=== PATIENT | male | born 1960 | race Caucasian/White ===

== ENCOUNTER 2016-11-11 08:16 | Observation (INO) | payer OTHER ==
[~2016-11-11] VITALS: Ht 182.9 cm; Wt 95.0 kg
[~2016-11-11 08:16] MED LIST: LISI-363 PO; LORTA10 PO; METF-324 PO; NEXI20CA PO; PRAV20 PO; XANA1TAB6 PO
[2016-11-11 08:19] VITALS: BP 139/80; PULSE 88; RESP 17; RESP 20; TEMP 100.1; O2SAT 98
[2016-11-11 08:38] VITALS: BP 137/72; PULSE 93; RESP 17; TEMP 98.3; O2SAT 99
[2016-11-11] MEDS ORDERED: HYDR-3535 PO (08:44)
[2016-11-11] MEDS ORDERED: LISI-515 PO (08:44)
[2016-11-11] MEDS ORDERED: PRAV40TA2 PO (08:44)
[2016-11-11] MEDS ORDERED: XANA1TAB2 PO (08:44)
[2016-11-11] MEDS ORDERED: METF1000 PO (08:44)
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
[2016-11-11] MEDS ORDERED: SODIUM CHLOR 0.9% 1000 ML INJ 1,000 ML IV SCH (09:08)
[2016-11-11] MEDS ORDERED: MORPHINE SULFATE 8 MG/ML INJ IV PUSH ONE (09:15)
[2016-11-11] MEDS ORDERED: SODIUM CHLORIDE 0.9% FLUSH 10 ML FLUSH IV FLUSH PRN ×2 (09:15→13:45)
[2016-11-11] MEDS ORDERED: ONDANSETRON HCL 4 MG/2 ML VIAL IVP ONE (09:15)
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
[2016-11-11 10:49] LABS: AUTOMATED NEUTROPHIL # 13.5 TH/MM3 (1.8-7.7); BASOPHIL % 0.2 % (0.0-2.0); HEMO FLAGS DIFF FINAL; LYMPH % 2.8 % (9.0-44.0); LYMPHOCYTE # 0.4 TH/MM3 (1.0-4.8); MEAN CELL VOLUME 90.5 FL (80.0-100.0); MEAN CORPUSCULAR HEMOGLOBIN 30.3 PG (27.0-34.0); MEAN CORPUSCULAR HGB CONC 33.5 % (32.0-36.0); PLATELET COUNT 167 TH/MM3 (150-450); RED BLOOD COUNT 4.41 MIL/MM3 (4.50-5.90); RED CELL DISTRIBUTION WIDTH 13.8 % (11.6-17.2); WHITE BLOOD COUNT 14.7 TH/MM3 (4.0-11.0)
[2016-11-11 11:02] LABS: ALT (GPT) 33 U/L (12-78); ANION GAP 8 MEQ/L (5-15); AST (GOT) 37 U/L (15-37); BICARBONATE 27.2 MEQ/L (21.0-32.0); BLOOD UREA NITROGEN 17 MG/DL (7-18); CHLORIDE 101 MEQ/L (98-107); GLOMERULAR FILTRATION RATE 64 ML/MIN (>89); POTASSIUM 3.6 MEQ/L (3.5-5.1); SODIUM (NA) 136 MEQ/L (136-145)
[2016-11-11 11:09] LABS: ALKALINE PHOSPHATASE 59 U/L (45-117); TOTAL BILIRUBIN ADULT 0.7 MG/DL (0.2-1.0)
[2016-11-11 11:30] LABS: BLOOD, URINE NEG (NEG); GLUCOSE,URINE NEG (NEG); KETONE, URINE NEG (NEG); NITRITE,URINE NEG (NEG); PH, URINE 6.5 (5.0-8.5); URINE COLOR YELLOW (YELLW/STRAW)
[2016-11-11 11:31] LABS: COMMENT (UR) CULT NOT INDICATED; CULTURE IF INDICATED CULT NOT INDICATED
[2016-11-11] MEDS ORDERED: ZOFR4TAB PO (11:41)
[2016-11-11] MEDS ORDERED: PERC10TA27 PO (11:41)
[2016-11-11] MEDS ORDERED: DEXTROSE 50% IN WATER 50 ML SYRINGE ONE (12:54)
[2016-11-11] MEDS ORDERED: DEXTROSE 50% IN WATER 50 ML SYRINGE IV PUSH ONE (13:00)
[2016-11-11 13:41] VITALS: BP 139/80; PULSE 98; RESP 18; O2SAT 99
[2016-11-11] MEDS ORDERED: RESP: ALBUTEROL 2.5 MG/IPRATROPIUM 0.5 MG NEB (PRN) NEB (13:45)
[2016-11-11] MEDS ORDERED: GLUCAGON 1 MG/ML VIAL OTHER PRN (13:45)
[2016-11-11] MEDS ORDERED: DEXTROSE 50% IN WATER 50 ML VIAL(D50) IV PUSH PRN (13:45)
[2016-11-11] MEDS ORDERED: ACETAMINOPHEN 325 MG TAB PO PRN ×2 (13:45)
[2016-11-11] MEDS ORDERED: ONDANSETRON HCL 4 MG/2 ML VIAL IVP PRN (13:45)
[2016-11-11] MEDS ORDERED: ENALAPRILAT 2.5 MG/2 ML VIAL IV PUSH PRN (13:45)
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
[2016-11-11] MEDS ORDERED: ALPRAZolam 1 MG TAB PO PRN (14:00)
[2016-11-11] MEDS: SODIUM CHLOR 0.9% 1000 ML INJ 1,000 ML IV SCH (14:45)
[2016-11-11] MEDS: ACETAMINOPHEN/HYDROcodone 325 MG/5 MG TAB PO PRN (14:48)
[2016-11-11] MEDS: INSULIN ASPART SUPPLEMENTAL SCALE SQ SCH ×2 (17:00→21:00)
[2016-11-11 17:23] VITALS: BP 121/73; PULSE 96; RESP 20; TEMP 100.8; O2SAT 98
[2016-11-11] MEDS: IBUPROFEN 400 MG TAB PO SCH (18:17)
[2016-11-11] MEDS: ACETAMINOPHEN/HYDROcodone 325 MG/7.5 MG TAB PO PRN (18:52)
[2016-11-11 20:19] VITALS: BP 120/72; PULSE 85; RESP 16; TEMP 98; O2SAT 97
[2016-11-11] MEDS: SODIUM CHLORIDE 0.9% FLUSH 10 ML FLUSH IV FLUSH SCH (21:00)
[2016-11-11] MEDS ORDERED: TEMAZEPAM 15 MG CAP PO PRN (21:00)
[2016-11-12] MEDS: IBUPROFEN 400 MG TAB PO SCH ×3 (00:09→12:00)
[2016-11-12 00:52] VITALS: BP 96/55; PULSE 78; RESP 18; TEMP 98.4; O2SAT 96
[2016-11-12] MEDS: ACETAMINOPHEN/HYDROcodone 325 MG/5 MG TAB PO PRN (03:44)
[2016-11-12 04:18] VITALS: BP 104/51; PULSE 84; RESP 18; O2SAT 97
[2016-11-12] MEDS: SODIUM CHLOR 0.9% 1000 ML INJ 1,000 ML IV SCH (05:50)
[2016-11-12 07:48] LABS: AUTOMATED NEUTROPHIL # 8.2 TH/MM3 (1.8-7.7); BASOPHIL % 0.1 % (0.0-2.0); EOSINOPHIL % 0.3 % (0.0-4.0); HEMO FLAGS DIFF FINAL; LYMPHOCYTE # 0.6 TH/MM3 (1.0-4.8); MEAN CELL VOLUME 89.8 FL (80.0-100.0); MEAN CORPUSCULAR HEMOGLOBIN 30.7 PG (27.0-34.0); MEAN CORPUSCULAR HGB CONC 34.2 % (32.0-36.0); MONO % 7.8 % (0.0-8.0); NEUT % 85.8 % (16.0-70.0); PLATELET COUNT 131 TH/MM3 (150-450); RED BLOOD COUNT 4.01 MIL/MM3 (4.50-5.90); RED CELL DISTRIBUTION WIDTH 14.1 % (11.6-17.2); WHITE BLOOD COUNT 9.5 TH/MM3 (4.0-11.0)
[2016-11-12 08:00] VITALS: BP 118/76; PULSE 83; RESP 18; TEMP 98.2; O2SAT 96
[2016-11-12] MEDS: INSULIN ASPART SUPPLEMENTAL SCALE SQ SCH ×2 (08:00→12:00)
[2016-11-12 08:52] LABS: ALKALINE PHOSPHATASE 59 U/L (45-117); ALT (GPT) 41 U/L (12-78); ANION GAP 6 MEQ/L (5-15); AST (GOT) 30 U/L (15-37); BICARBONATE 28.3 MEQ/L (21.0-32.0); BLOOD UREA NITROGEN 16 MG/DL (7-18); CHLORIDE 104 MEQ/L (98-107); GLOMERULAR FILTRATION RATE 83 ML/MIN (>89); POTASSIUM 3.6 MEQ/L (3.5-5.1); SODIUM (NA) 138 MEQ/L (136-145); TOTAL BILIRUBIN ADULT 0.5 MG/DL (0.2-1.0)
[2016-11-12] MEDS ORDERED: PRAVASTATIN SOD 40 MG TAB PO SCH (09:00)
[2016-11-12] MEDS ORDERED: LISINOPRIL 20 MG TAB PO SCH (09:00)
[2016-11-12] MEDS ORDERED: PANTOPRAZOLE SODIUM 40 MG VIAL IV PUSH SCH (09:00)
[2016-11-12] MEDS: SODIUM CHLORIDE 0.9% FLUSH 10 ML FLUSH IV FLUSH SCH (10:08)
[2016-11-12] MEDS: ACETAMINOPHEN/HYDROcodone 325 MG/7.5 MG TAB PO PRN (10:08)
[2016-11-12 12:00] VITALS: BP 131/80; PULSE 94; RESP 20; TEMP 98.2; O2SAT 95
--- NOTE | 2016-11-12 12:10 | HHI.PR ---
Subjective Remarks Follow-up gastroenteritis/hypoglycemia 11/12/16-patient seen and examined, reports significant improvement of emesis. Able to tolerate by mouth without any complication nausea and vomiting today. Blood glucose within normal limit. Patient complains of left knee pain, however able to ambulate. Objective Vitals Vital Signs Date Time Temp Pulse Resp B/P (MAP) Pulse Ox O2 Delivery O2 Flow Rate FiO2 11/12/16 08:00 98.2 83 18 118/76 (90) 96 11/12/16 04:44 12 11/12/16 04:18 84 18 104/51 (68) 97 11/12/16 00:52 98.4 78 18 96/55 (69) 96 11/11/16 20:19 98.0 85 16 120/72 (88) 97 11/11/16 19:52 12 11/11/16 17:23 100.8 96 20 121/73 (89) 98 11/11/16 13:41 98 18 139/80 (99) 99 Room Air I/O 11/11/16 11/11/16 11/11/16 11/12/16 11/12/16 11/12/16 07:00 15:00 23:00 07:00 15:00 23:00 Intake Total 1240 ml 480 ml Output Total 200 ml Balance 1040 ml 480 ml Intake Oral 240 ml 480 ml IV Total 1000 ml Output Urine Total 200 ml # Voids 1 6 Result Diagram: 11/12/16 0550 11/12/16 0550 Imaging Last Impressions Knee X-Ray 11/11/16 0000 Signed Impressions: Service Date/Time: Friday, November 11, 2016 09:54 - CONCLUSION: 1. The orthopedic hardware appears intact. 2. Extensive soft tissue swelling with a large joint effusion. Jose Alfredo Stallworth MD Objective Remarks GENERAL: NAD SKIN: Warm and dry. HEAD: Normocephalic. EYES: No scleral icterus. No injection or drainage. NECK: Supple, trachea midline. No JVD or lymphadenopathy. CARDIOVASCULAR: Regular rate and rhythm without murmurs, gallops, or rubs. RESPIRATORY: Breath sounds equal bilaterally. No accessory muscle use. GASTROINTESTINAL: Abdomen soft, non-tender, nondistended. MUSCULOSKELETAL: No cyanosis, or edema. Minimal swelling left knee BACK: Nontender without obvious deformity. No CVA tenderness. A/P Problem List: (1) Gastroenteritis ICD Code: K52.9 - Noninfective gastroenteritis and colitis, unspecified Status: Acute (2) Hypoglycemia ICD Code: E16.2 - Hypoglycemia, unspecified (3) Knee effusion, left ICD Code: M25.462 - Effusion, left knee Status: Acute (4) Hypertension ICD Code: I10 - Essential (primary) hypertension Status: Acute (5) Hyperlipidemia ICD Code: E78.5 - Hyperlipidemia, unspecified Status: Acute (6) DM (diabetes mellitus) ICD Code: E11.9 - Type 2 diabetes mellitus without complications Status: Acute Assessment and Plan 56-year-old man with Vital gastroenteritis-resolved Continue with Conservative management with IV fluid hydration, antiemetic Hypoglycemia-resolved Secondary to above GI problem Treatment per hypoglycemic protocol Diabetes type 2 Resume outpatient medications Left knee effusion Left knee x-ray noted and review by me with finding of large left knee effusion Conservative treatment at this time Continue NSAIDs Leukocytosis-resolved Likely stress reactive No evidence of infectious process Continue to monitor Hypertension, hyperlipidemia Continue outpatient medications including lisinopril, statin Anxiety Xanax when necessary Discharge Planning Discharge patient to home Condition on discharge: Improved Regular Diet as tolerated Ad Mer activity Rx written:see EMR Follow-up with primary care physician in one week Chad Alexander MD Nov 12, 2016 12:10
[2016-11-12] MEDS ORDERED: PERC10TA27 PO (12:12)
== END 2016-11-12 14:56 | disposition home or self-care (01) ==
LOC: NEPE 08:16 → NEDA 13:43 → NEPGCP 16:12
PROVIDERS: ADMIT Hospitalist; ATTEND Hospitalist
DX: E11.649 Type 2 diabetes mellitus with hypoglycemia without coma (principal); K52.9 Noninfective gastroenteritis and colitis, unspecified; M25.462 Effusion, left knee; E78.00 Pure hypercholesterolemia, unspecified; G89.29 Other chronic pain; M54.5 Low back pain; Z79.84 Long term (current) use of oral hypoglycemic drugs
CPT/HCPCS: 73564; 80053; 81001; 82948; 83690; 85025; 96361; 96374; 96375; 99285; C9113; G0378; J2270; J2405; J7030

== ENCOUNTER 2017-05-13 16:37 | Emergency (ER) | payer OTHER ==
[~2017-05-13] VITALS: Ht 182.9 cm; Wt 90.9 kg
[~2017-05-13 16:37] MED LIST changes: +HYDR-3535 PO; -LISI-363 PO; +LISI-515 PO; -LORTA10 PO; -METF-324 PO; +METF1000 PO; -NEXI20CA PO; +PERC10TA27 PO; -PRAV20 PO; +PRAV40TA2 PO; +XANA1TAB2 PO; -XANA1TAB6 PO; +ZOFR4TAB PO
[2017-05-13 16:59] VITALS: BP 159/101; PULSE 119; RESP 20; TEMP 97.9; O2SAT 100
--- NOTE | 2017-05-13 17:45 | RADRPT ---
EXAM DATE/TIME: 05/13/2017 17:23 [facility] COMPARISON: No previous studies available for comparison. INDICATIONS : Left shoulder pain after fall. MEDICAL HISTORY : Diabetes mellitus type II. SURGICAL HISTORY : Total knee replacement, left. ENCOUNTER: Initial ACUITY: 1 day PAIN SCORE: 10/10 LOCATION: Left shoulder. FINDINGS: There is a mildly impacted multipart fracture of the proximal left humerus with components involving the anatomic and surgical neck region with slight separation of a greater tuberosity fragment. The hu meral head is slightly subluxed inferiorly however no dislocation is present. There is mild arthritic change of the a.c. joint. The adjacent clavicle ribs appear intact. CONCLUSION: Mildly displaced multipart left humeral head and neck fracture Josemanuel Mercer MD on May 13, 2017 at 17:42 Board Certified Radiologist. This report was verified electronically.
--- NOTE | 2017-05-13 17:46 | RADRPT ---
EXAM DATE/TIME: 05/13/2017 17:27 [facility] COMPARISON: No previous studies available for comparison. INDICATIONS : Left upper arm pain. MEDICAL HISTORY : Diabetes mellitus type II. SURGICAL HISTORY : Total knee replacement, left. ENCOUNTER: Initial ACUITY: 1 day PAIN SCORE: 10/10 LOCATION: Left upper arm. FINDINGS: Humeral head and neck fracture is identified proximally. The remainder of the humerus is grossly inta ct on this single projection evaluation CONCLUSION: Proximal humeral head and neck fracture Josemanuel Mercer MD on May 13, 2017 at 17:43 Board Certified Radiologist. This report was verified electronically.
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
[2017-05-13] MEDS ORDERED: MORPHINE SULFATE 4 MG/ML INJ IV PUSH ONE (18:45)
[2017-05-13] MEDS ORDERED: IBUP-232 PO (18:49)
[2017-05-13] MEDS ORDERED: MORPHINE SULFATE 4 MG/ML INJ IM ONE (19:00)
== END 2017-05-13 19:19 | disposition home or self-care (01) ==
LOC: NED 16:37 → NEPC 19:19
DX: S42.292A Other displaced fracture of upper end of left humerus, initial encounter for closed fracture (principal); E11.9 Type 2 diabetes mellitus without complications; I10 Essential (primary) hypertension; E78.5 Hyperlipidemia, unspecified; F17.210 Nicotine dependence, cigarettes, uncomplicated; E78.00 Pure hypercholesterolemia, unspecified; K21.9 Gastro-esophageal reflux disease without esophagitis; F41.9 Anxiety disorder, unspecified; W18.30XA Fall on same level, unspecified, initial encounter
CPT/HCPCS: 29240; 73030; 73060; 96372; 99283; J2270

== ENCOUNTER 2017-06-18 18:20 | Emergency (ER) | payer OTHER ==
[~2017-06-18] VITALS: Ht 177.8 cm; Wt 80.0 kg
[~2017-06-18 18:20] MED LIST changes: +IBUP-232 PO
[2017-06-18 18:26] VITALS: BP 133/77; PULSE 104; RESP 20; TEMP 98.6; O2SAT 99
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
[2017-06-18] MEDS ORDERED: oxyCODONE/ACETAMINOPHEN 5 MG/325 MG TAB PO ONE (20:00)
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
== END 2017-06-18 21:02 | disposition home or self-care (01) ==
LOC: NEPD 18:20
DX: S80.02XA Contusion of left knee, initial encounter (principal); M25.512 Pain in left shoulder; E11.9 Type 2 diabetes mellitus without complications; E78.00 Pure hypercholesterolemia, unspecified; I10 Essential (primary) hypertension; V09.00XA Pedestrian injured in nontraffic accident involving unspecified motor vehicles, initial encounter; Y92.007 Garden or yard of unspecified non-institutional (private) residence as the place of occurrence of the external cause; Z79.84 Long term (current) use of oral hypoglycemic drugs
CPT/HCPCS: 73030; 73564; 99284